=== PATIENT | male | born 1975 | race Caucasian/White ===

== ENCOUNTER 2018-02-26 09:58 | Emergency (ER) | payer SELFPAY ==
[2018-02-26 10:12] VITALS: BMI 41.9
[2018-02-26] MEDS ORDERED: ASPIRIN 325 MG TABLET PO ONE (11:35)
--- NOTE | 2018-02-26 11:35 | PDOC ---
History of Present Illness - General Chief Complaint: Chest Pain Stated Complaint: CHEST PAIN Time Seen by Provider: 02/26/18 11:03 History Source: Patient - History of Present Illness Presenting Symptoms: Other (this am) Past History - Past Medical History Allergies/Adverse Reactions: Allergies Allergy/AdvReac Type Severity Reaction Status Date / Time ibuprofen Allergy Verified 02/26/18 10:04 muscle relaxants Allergy Uncoded 02/26/18 10:04 Home Medications: Ambulatory Orders Aripiprazole [Abilify] 5 mg PO DAILY 02/26/18 Aripiprazole [Abilify] 5 mg PO DAILY #30 tablet 02/26/18 Aspirin 81 mg PO DAILY #30 tab.chew 02/26/18 Aspirin Coated [Ecotrin -] 81 mg PO DAILY 02/26/18 Losartan Potassium 100 mg PO DAILY #30 tablet 02/26/18 Losartan Potassium [Cozaar] 100 mg PO DAILY 02/26/18 Nifedipine ER [Procardia XL -] 30 mg PO DAILY #30 tab.er.24 02/26/18 Nifedipine ER [Procardia Xl -] 30 mg PO DAILY 02/26/18 Quetiapine Fumarate [Seroquel -] 50 mg PO HS 02/26/18 Quetiapine Fumarate [Seroquel -] 50 mg PO HS #30 tablet 02/26/18 Sertraline HCl [Zoloft -] 50 mg PO DAILY #30 tablet 02/26/18 Sertraline HCl [Zoloft] 100 mg PO DAILY #30 tablet 02/26/18 Sertraline HCl [Zoloft] 150 mg PO DAILY 02/26/18 Simvastatin 10 mg PO DAILY #30 tablet 02/26/18 Simvastatin [Zocor] 10 mg PO HS 02/26/18 COPD: No Disorders: Yes (renal stones) HTN: Yes Hypercholesterolemia: Yes Psychiatric Problems: Yes (depression (hospitalized for same)) - Suicide/Smoking/Psychosocial Hx Smoking History: Never smoked Review of Systems - Review of Systems Constitutional: No: Chills, Fever Respiratory: No: Cough, Shortness of Breath Cardiac (ROS): Yes: Chest Pain. No: Lightheadedness, Palpitations, Syncope ABD/GI: No: Nausea, Vomiting *Physical Exam - Vital Signs Last Vital Signs Temp Pulse Resp BP Pulse Ox 98.3 F 103 H 24 H 164/103 H 100 02/26/18 10:10 02/26/18 10:10 02/26/18 10:10 02/26/18 10:10 02/26/18 10:10 - Physical Exam General Appearance: Yes: Appropriately Dressed. No: Apparent Distress HEENT: positive: Normal Voice Neck: positive: Supple Respiratory/Chest: positive: Lungs Clear, Normal Breath Sounds. negative: Respiratory Distress Cardiovascular: positive: Regular Rate Gastrointestinal/Abdominal: positive: Soft. negative: Tender Extremity: negative: Tender, Pedal Edema, Swelling Integumentary: positive: Dry, Warm Neurologic: positive: Fully Oriented, Alert, Normal Mood/Affect Heart Score/ECG Review - History History: Slightly suspicious - Electrocardiogram EKG: Normal - Age Age: </= 45 - Risk Factors Risk Factors Heart Score: Yes Hx Hypercholesterolemia, Yes Hx Hypertension, Yes Hx Obesity Based on the list above the patient has:: >/=3 risk factors or Hx atherosclerotic disease - Troponin Troponin: </= normal limit - Score Heart Score - Total: 2 Moderate Sedation - Procedure Monitoring Vital Signs: Procedure Monitoring Vital Signs Temperature 98.3 F 02/26/18 10:10 Pulse Rate 103 H 02/26/18 10:10 Respiratory Rate 24 H 02/26/18 10:10 Blood Pressure 164/103 H 02/26/18 10:10 O2 Sat by Pulse Oximetry (%) 100 02/26/18 10:10 ED Treatment Course - LABORATORY CBC & Chemistry Diagram: 02/26/18 11:35 02/26/18 11:35 - ADDITIONAL ORDERS Additional order review: Laboratory Results 02/26/18 02/26/18 02/26/18 11:35 11:35 11:35 Sodium Potassium Chloride Carbon Dioxide Anion Gap BUN Creatinine Creat Clearance w eGFR Random Glucose Calcium Total Bilirubin AST ALT Alkaline Phosphatase Creatine Kinase Troponin I B-Natriuretic Peptide 95.1 Total Protein Albumin Urine Color Straw Urine Appearance Clear Urine pH 5.0 Ur Specific Ione 1.010 Urine Protein Negative Urine Glucose (UA) Negative Urine Ketones Negative Urine Blood Negative Urine Nitrite Negative Urine Bilirubin Negative Urine Urobilinogen Negative Ur Leukocyte Esterase Negative Opiates Screen Negative Methadone Screen Negative Barbiturate Screen Negative Phencyclidine Screen Negative Ur Amphetamines Screen Negative MDMA (Ecstasy) Screen Negative Benzodiazepines Screen Negative Cocaine Screen Negative U Marijuana (THC) Screen Negative 02/26/18 11:35 Sodium 139 Potassium 4.5 Chloride 103 Carbon Dioxide 30 Anion Gap 7 L BUN 15 Creatinine 0.9 Creat Clearance w eGFR > 60 Random Glucose 86 Calcium 8.9 Total Bilirubin 0.5 AST 18 ALT 25 Alkaline Phosphatase 80 Creatine Kinase 140 Troponin I < 0.02 B-Natriuretic Peptide Total Protein 6.4 Albumin 3.5 Urine Color Urine Appearance Urine pH Ur Specific Ione Urine Protein Urine Glucose (UA) Urine Ketones Urine Blood Urine Nitrite Urine Bilirubin Urine Urobilinogen Ur Leukocyte Esterase Opiates Screen Methadone Screen Barbiturate Screen Phencyclidine Screen Ur Amphetamines Screen MDMA (Ecstasy) Screen Benzodiazepines Screen Cocaine Screen U Marijuana (THC) Screen 02/26/18 11:35 RBC 5.06 MCV 87.1 MCHC 34.3 RDW 13.3 MPV 7.8 Neutrophils % 64.9 Lymphocytes % 24.8 Monocytes % 7.8 Eosinophils % 1.8 Basophils % 0.7 - RADIOLOGY Radiology Studies Ordered: Category Date Time Status CHEST PA & LAT [RAD] Stat Radiology 02/26/18 11:20 Completed RIBS BILATERAL [RAD] Stat Radiology 02/26/18 11:19 Completed - Medications Given in the ED: ED Medications Discontinued Medications Generic Name Dose Route Start Last Admin Trade Name Freq PRN Reason Stop Dose Admin Aspirin 325 mg 02/26/18 11:35 02/26/18 12:06 Asa - PO 02/26/18 11:36 325 mg ONCE ONE Administration Medical Decision Making - Medical Decision Making 02/26/18 11:27 42-year-old male, morbid obesity, hypertension, hyperlipidemia, depression, here with chest pain. Patient states he started having diffuse chest pain around 4:30 this a.m., described as "knuckles cracking", comes and goes, unclear duration with no exacerbating or alleviating factors. + nausea, no vomiting, shortness of breath or diaphoresis. No history of similar chest pain and no cardiac w/u in past. Does admit to not taking any of his meds recently because he lost his insurance. Patient s/p mechanical fall last week and states he injured chest and left lower extremity, but wasn't having chest pain at the time. Was seen in another ER and had negative x-rays of left lower extremity. States no rib xray taken. Of note, patient has had multiple recent admissions for his depression and suicidal ideation, but states he does not feel depressed at this time and no SI. Currently undomiciled and staying in a long term in [place]. States he usually stays at a long term in [place] and hoping to be able to be able to return there at some point in the near future See exam R/o ACS, no obvious RF for PE, low suspicion for dissection, no infectious sxs Non-compliant w/ meds Tachy and hypertensive in ED w/ clear chest/lungs otherwise -dose of asa -EKG -CXR -labs -dispo pending 02/26/18 14:33 EKG/XRs and labs all wnl. Rpt vitals improved. Will give dose of home BP meds as pt ran out of all meds recently 2/2 insurance issues. Pt reports no CP at this time and requesting food at this time. As per d/w Dr Carver, given timing of sxs, no need for rpt trop at this time. SW consult requested to help address insurance/medication issues 02/26/18 15:42 Rxs sent to [place] who ran pt's medicaid number and told me pt's insurance is inactive. I also contacted pt's [facility] up in [place] who also confirmed that pt' s insurance is not working. ED scribe was able to make a reservation appt in the resident's clinic for 03/01 so that patient can get assistance filling his medications. Patient states he doesn't have a personal phone, but that staff in the resident clinic can call the long term, [facility], in [place] where pt is currently staying. Pt made aware how important this is and verbalized understanding. Pt reports that there is staff at his long term who is currently assisting with his insurance issues. Pt stable for discharge. Dr Carver made aware *DC/Admit/Observation/Transfer Diagnosis at time of Disposition: Chest pain Qualifiers: Chest pain type: unspecified Qualified Code(s): R07.9 - Chest pain, unspecified Hypertension Qualifiers: Hypertension type: unspecified Qualified Code(s): I10 - Essential (primary) hypertension - Discharge Dispostion Disposition: HOME Condition at time of disposition: Improved - Prescriptions Prescriptions: Aripiprazole [Abilify] 5 mg PO DAILY #30 tablet Aspirin 81 mg PO DAILY #30 tab.chew Losartan Potassium 100 mg PO DAILY #30 tablet Nifedipine ER [Procardia XL -] 30 mg PO DAILY #30 tab.er.24 Quetiapine Fumarate [Seroquel -] 50 mg PO HS #30 tablet Sertraline HCl [Zoloft] 100 mg PO DAILY #30 tablet Sertraline HCl [Zoloft -] 50 mg PO DAILY #30 tablet Simvastatin 10 mg PO DAILY #30 tablet - Referrals Referrals: Tiana Solorzano [Primary Care Provider] - - Patient Instructions Printed Discharge Instructions: DI for Atypical Chest Pain Additional Instructions: You were seen for chest pain and had negative EKG, chest x-ray and labs. Due to not taking your medications, your blood pressure was elevated today and you were given dose of your home blood pressure medication . We have a resident clinic here [facility] where you can get assistance filling your medication, as your insurance is not active as was confirmed by your [facility] in [place]. The resident clinic is located at [address] [facility]. A reservation appointment was made for you for 10 AM on 03/01. However, the staff at the facility needs to get further information from you and will call your long term tomorrow or the following day. It is important that you speak with them in order to secure your appointment. Please continue to follow-up with the staff at your long term so that your Medicaid can be re-activated - Post Discharge Activity
[2018-02-26 11:59] LABS: BASO % 0.7 % (0-2.0); EOS % 1.8 % (0-4.5); HEMATOCRIT 44.1 % (35.4-49); HEMOGLOBIN 15.1 GM/dL (11.7-16.9); LYMPH % 24.8 % (8-40); MCH 29.8 pg (25.7-33.7); MCHC 34.3 g/dl (32.0-35.9); MEAN CELL VOLUME 87.1 fl (80-96); MEAN PLT VOLUME 7.8 fl (7.5-11.1); MONO % 7.8 % (3.8-10.2); NEUT % 64.9 % (42.8-82.8); PLATELET COUNT 267 K/MM3 (134-434); RBC 5.06 M/mm3 (4.00-5.60); RDW 13.3 % (11.9-15.9)
[2018-02-26] MEDS ORDERED: ASPIRIN 325 MG TABLET ONE (12:04)
[2018-02-26 12:05] LABS: URINE APPEARANCE CLEAR; URINE BILIRUBIN NEGATIVE (<2.0 mg/dL); URINE COLOR STRAW; URINE GLUCOSE (UA) NEGATIVE (NEGATIVE); URINE KETONE NEGATIVE (NEGATIVE); URINE LEUK ESTERASE NEGATIVE (NEGATIVE); URINE NITRITE NEGATIVE (NEGATIVE); URINE PROTEIN NEGATIVE (NEGATIVE); URINE UROBILINOGEN NEGATIVE mg/dL (0.2-1.0)
[2018-02-26 12:22] LABS: COCAINE, UR NEGATIVE ng/ml (CUTOFF=300); METHADONE, UR NEGATIVE ng/ml (CUTOFF=300); OPIATES, URI NEGATIVE ng/ml (CUTOFF=300); PHENCYCLIDINE,URINE NEGATIVE ng/ml (CUTOFF=25); URINE AMPHETAMINES NEGATIVE ng/ml (CUTOFF=500); URINE BARBITURATES NEGATIVE ng/ml (CUTOFF=200); URINE BENZODIAZEPINES NEGATIVE ng/ml (CUTOFF=200)
[2018-02-26 12:27] LABS: ALBUMIN 3.5 g/dl (3.4-5.0); ALK PHOS 80 U/L (45-117); ANION GAP 7 MMOL/L (8-16); BILIRUBIN,TOTAL 0.5 mg/dL (0.2-1); BLOOD UREA NITROGEN 15 mg/dL (7-18); CALCIUM 8.9 mg/dL (8.5-10.1); CHLORIDE 103 mmol/L (98-107); CO2 30 mmol/L (21-32); CREATININE 0.9 mg/dL (0.55-1.3); GLUCOSE,RANDOM 86 mg/dL (74-106); POTASSIUM 4.5 mmol/L (3.5-5.1); SGOT/AST 18 U/L (15-37); SGPT/ALT 25 U/L (13-61); SODIUM 139 mmol/L (136-145); TOT PROT 6.4 g/dl (6.4-8.2)
[2018-02-26] MEDS ORDERED: LOSARTAN POTASSIUM 50 MG TABLET (FP) PO ONE (14:45)
[2018-02-26] MEDS ORDERED: SERTRALINE HCL 50 MG TABLET (FP) PO ONE ×2 (14:46)
[2018-02-26 16:37] VITALS: BP 150/100; PULSE 87; TEMP 98.7
[2018-02-26] MEDS ORDERED: NIFEdipine E.R. 30 MG TABLET (FP) ONE (16:44)
[2018-02-26] MEDS ORDERED: SERTRALINE HCL 50 MG TABLET (FP) ONE (16:44)
--- NOTE | 2018-02-26 17:10 | EKG ---
Test Reason : Blood Pressure : / mmHG Vent. Rate : 099 BPM Atrial Rate : 099 BPM P-R Int : 140 ms QRS Dur : 080 ms QT Int : 344 ms P-R-T Axes : 049 004 036 degrees QTc Int : 441 ms NORMAL SINUS RHYTHM POSSIBLE LEFT ATRIAL ENLARGEMENT BORDERLINE ECG NO PREVIOUS ECGS AVAILABLE Confirmed by SEBLE NICOLE MD ([id number]) on 02/26/2018 5:09:47 PM Referred By: Confirmed By:SEBLE NICOLE MD
[2018-02-27] MEDS ORDERED: NIFEdipine E.R. 30 MG TABLET (FP) PO ONE (14:45)
== END 2018-02-26 17:00 | disposition home or self-care (01) ==
LOC: JER 09:58
DX: R07.9 Chest pain, unspecified (principal); I10 Essential (primary) hypertension; E78.00 Pure hypercholesterolemia, unspecified; F32.9 Major depressive disorder, single episode, unspecified
CPT/HCPCS: 36415; 71046-TC-FY; 71111-TC-FY; 80053; 80307; 81003; 82550; 83880; 84484; 85025; 93005; 93010; 99282-25